=== PATIENT | male | born 1955 | race Caucasian/White ===

== ENCOUNTER 2018-04-03 06:33 | Inpatient (IN) ==
[2018-04-03] MEDS ORDERED: CeFAZolin Syr 2,000MG/20 ML 2,000 MG/20 ML SYRINGE IVPB ONE (06:51)
[2018-04-03] MEDS ORDERED: Albuterol 2.5 MG/3 ML NEBULIZER IH ONE ×2 (06:51→08:27)
[2018-04-03] MEDS ORDERED: Ringers Solution, Lactated 1,000 ML IVC SCH ×2 (07:00→12:21)
[2018-04-03] MEDS ORDERED: Albuterol 2.5 MG/3 ML NEBULIZER ONE (07:09)
[2018-04-03] MEDS ORDERED: Ethanol\\Acetic Acid\\Na Ace\\Ben 1,000 ML IRRIG.SOLN IR ONE (07:15)
[2018-04-03] MEDS ORDERED: *HR* FentaNYL (PF) 100 MCG/2 ML VIAL ONE (07:23)
[2018-04-03] MEDS ORDERED: Ondansetron 4 MG/2 ML VIAL ONE (07:23)
[2018-04-03] MEDS ORDERED: Lidocaine -MPF 4% 5 ML AMPUL ONE (07:23)
[2018-04-03] MEDS ORDERED: Dexamethasone 4 MG/ML VIAL ONE ×2 (07:23→07:29)
[2018-04-03] MEDS ORDERED: Ketorolac 30 MG/ML VIAL ONE (07:23)
[2018-04-03] MEDS ORDERED: *HR* Midazolam HCl 2 MG/2 ML VIAL ONE (07:23)
[2018-04-03] MEDS ORDERED: *HR* Succinylcholine 200 MG/10 ML VIAL IVP ONE (07:23)
[2018-04-03] MEDS ORDERED: Lidocaine -MPF 2% 2 ML VIAL ONE (07:23)
[2018-04-03] MEDS ORDERED: *HR* Propofol 200 MG/20 ML VIAL IVP ONE (07:23)
[2018-04-03] MEDS ORDERED: Famotidine 20 MG/2 ML VIAL IVP ONE (07:55)
[2018-04-03] MEDS ORDERED: Acetaminophen IV 1,000 MG/100 ML INFUS..BTL IVPB ONE (07:55)
[2018-04-03] MEDS ORDERED: Pregabalin 75 MG CAPSULE PO ONE (07:55)
--- NOTE | 2018-04-03 07:58 | Anesthesia Evaluation PreOp ---
Date of Encounter: 04/03/18 Time of Encounter: 08:00 - Past History Planned Operation: Rt TSR Cardiac History: HTN, Hyperlipidemia Pulmonary History: Smoker, DEIRDRE Dx (non compliant with CPAP) HUMAN RESOURCES TEMP History: Denies Any Significant HX Other Medical History: Diabetes Type II, Thyroid, Other (Obese) Anesthesia History: No Prior Anesthetic Complications Alcohol Use: rarely Drug use: none Medications and Allergies Amlodipine Besylate 10 mg PO DAILY 04/03/18 [History] Atorvastatin Calcium [Lipitor] 20 mg PO DAILY 04/03/18 [History] Dapagliflozin/Metformin HCl [Xigduo Xr 5 mg-1,000 mg Tablet] 1 tab PO DAILY 06/13 [History] Levothyroxine Sodium [Synthroid] 137 mcg PO DAILY 04/03/18 [History] Meloxicam [Meloxicam] 15 mg PO BID 04/03/18 [History] Metoprolol [Lopressor] 50 mg PO BID 04/03/18 [History] OxyCODONE Immed Rel [Roxicodone 5 MG] 5 mg PO Q6HR PRN 7 Days #28 tablet [Rx] hydroCHLOROthiazide [Hydrochlorothiazide] 25 mg PO DAILY 04/03/18 [History] 3 Allergy/AdvReac Type Severity Reaction Status Date / Time No Known Allergies Allergy Verified 04/03/18 07:19 - Meds/Allergy Pre-op Review Medications Reviewed: Yes Allergies Reviewed: Yes Beta Blockers on Current Med List: Yes (Metoprolol today 0530) Anesthesia Results - Labs Laboratory Tests 03/28/18 03/28/18 08:11 08:11 Hgb 17.8 H Hct 50.6 H Plt Count 267 Sodium 135 L Potassium 4.4 BUN 19 Creatinine 0.84 - Imaging EKG: report reviewed (SR) Anesthesia Exam O2 Sat Height 1.78 m Height 1.78 m Height 1.78 m Weight 120.202 kg Weight 120.202 kg Weight 120.202 kg O2 Sat by Pulse Oximetry 97 O2 Sat by Pulse Oximetry 97 Vital Signs Temp Pulse Resp BP Pulse Ox 97.6 F 65 18 130/80 97 04/03/18 06:56 04/03/18 06:56 04/03/18 06:56 04/03/18 06:56 04/03/18 06:56 Height: 5'10 Weight: 265 lbs NPO (# of Hours): MN Pain Scale: 0 - HEENT Pupil (Motor): Pupils equal, EOMI Mallampati: III Teeth: Missing Oral Opening: Less than or equal to 3 - HUMAN RESOURCES TEMP LOC: Oriented HUMAN RESOURCES TEMP Motor: Normal RUE, Normal LUE, Normal RLE, Normal LLE, Normal Face HUMAN RESOURCES TEMP Sensory: Normal: RUE, LUE, RLE, LLE, Face - Cardiac Rhythm: Regular Murmur: None JVD: No Carotid Bruit: No - Pulmonary Breath Sounds: bilateral Clear Respiratory Effort: Symmetrical Anesthesia Assess/Plan ASA Score: 3 (HTN DM Hypothyroid) Modified Zev Scale for Level of Consciousness: Cooperative, oriented, and tranquil Anesthetic Plan: General, Regional Monitoring Plan: Standard Monitors Recovery Plan: PACU (Discussed GA and RA, agrees to proceed)
[2018-04-03] MEDS ORDERED: CeFAZolin Syr 3,000MG/30 ML 3,000 MG/30 ML SYRINGE IVPB ONE (08:00)
--- NOTE | 2018-04-03 08:00 | History & Physical Report ---
Date of Encounter: 04/03/18 Time of Encounter: 07:59 24 Hour HP Update - Instructions Instructions: If the History and Physical is less than 30 days old and was completed prior to A.M. admission and or procedure and has NOT been updated on calendar day of procedure please complete this update prior to performing procedure. - Update Patient reports changes in Medical Condition: No Changes in examination, assessment, or condition: No Changes in Medication: No Preop tests/diagnostics Reviewed: Yes Surgery Remains Indicated: Yes Consent for Planned Operative Procedure(s) Verified: Yes - Pre-Operative Checklist Preoperative Checklist Indicated: No Prophylactic Antibiotic Ordered: Yes Is VTE Prophylaxis Indicated?: Yes
[2018-04-03] MEDS ORDERED: Acetaminophen IV 1,000 MG/100 ML INFUS..BTL ONE (08:01)
[2018-04-03] MEDS ORDERED: Pregabalin 75 MG CAPSULE ONE (08:01)
[2018-04-03] MEDS ORDERED: Famotidine 20 MG/2 ML VIAL ONE (08:02)
[2018-04-03] MEDS ORDERED: Bupivacaine/Clonidine Syringe 1 EACH SYRINGE ONE (08:11)
[2018-04-03] MEDS ORDERED: ROPIVACAINE HCL/PF 0.5% 30 ML VIAL ONE (08:11)
[2018-04-03] MEDS ORDERED: Tetracaine/PF 20 MG/2 ML AMPUL ONE (08:13)
[2018-04-03] MEDS ORDERED: *HR* Labetalol 20 MG/4 ML SYRINGE IVP PRN (08:27)
[2018-04-03] MEDS ORDERED: *HR* HYDROmorphone (PF) 1 MG/ML SYRINGE IVP PRN (08:27)
[2018-04-03] MEDS ORDERED: *HR* Promethazine 25 MG/ML VIAL IVP PRN (08:27)
[2018-04-03] MEDS ORDERED: *HR* Meperidine 25 MG/ML SYRINGE IVP PRN (08:27)
--- NOTE | 2018-04-03 08:27 | Anesthesia Procedures ---
Date of Encounter: 04/03/18 Time of Encounter: 08:15 Procedures: Anesthesia - Nerve Block Procedure Date: 04/03/18 Time: 08:15 Allergies/Adv Reactions: NKDa Pre-op Diagnosis: right shoulder arthritis/cyst Surgical Procedure: right shoulder arthroplasty Checklist: Correct Patient Identifier, Correct procedure, History checked Correct side: Right Blood Thinner: No Monitor Applied: EKG, BP, Pulse Oximetry Supplemental Oxygen via Nasal Cannula (L/min): 2 Sedation: Versed (mg): 2 Sedation: Fentanyl (mcg): 100 Indication: Post Op Analgesia Pre-op Neuro Deficits: No Block Type: Supraclavicular Catheter placed: No Sterile Technique: Yes Ultrasound used: Yes Anatomy identified: Yes Visual spread of Local: Yes Neuro Stimulation: Yes Nerve Stimulator Range: 0.2 - 0.4 mA Blood on Needle Aspiration: No Smooth Injection of Local: Yes Pain with Injection of Local: No Prep: Chlorhexadine Needle: 22 x 50 mm Stimuplex Local: 0.25% Bupivicaine w/Clonidine 20 mcg/cc, Ropivacaine (0.5% ropi +8mg decadron +1% tetracaine ) Volume (cc): 30 Number of Attempts: 1 Complications: None/effective block Vitals: Vital Signs - Last 8 Hours Temp Pulse Resp BP Pulse Ox 04/03/18 08:12 68 137/97 93 04/03/18 06:56 97.6 F 65 18 130/80 97 Intake and Output 04/02/18 04/03/18 04/03/18 23:59 07:59 15:59 Other: Weight 120.202 kg Blood Glucose* 166 Patient Weight 04/03/18 23:59 Weight 120.202 kg Comments: per dr. klein request
--- NOTE | 2018-04-03 09:32 | Orthopedic Operative Note ---
Date of procedure: 04/03/18 Pre-op diagnosis: Right shoulder cuff tear arthropathy right shoulder cyst Post-op diagnosis: same Procedure: Procedure: Total Shoulder Replacment Reverse, right, cyst evacuation Estimated blood loss: 100 cc Hardware: Metal and polyethylene replacement: Arthrex large glenoid baseplate, 2 4.5 screws. 1 6.5 screw, 42+4 glenosphere, 12 humeral stem, poly insert 3 and 6 metal Exam Under anesthesia: Full motion no instability 3 x 3 cm cyst over the acromioclavicular joint. Procedural Notes: Grade 4 arthritic changes humeral head glenoid socket irreparable tear supraspinatus tendon, synovial type cyst acromioclavicular joint. Operative procedure: The patient was brought to the operating room and placed on the operating room table. After general anesthesia was administered the operative shoulder was examined. Findings were noted. The patient was placed in the modified beachchair position. All pressure points were padded appropriately. And the head was stabilized in the neutral position. The operative extremity was prepped and draped in the sterile surgical fashion. The patient received IV antibiotics prior to skin incision. A standard deltopectoral approach was made to the operative shoulder. Incision was made to the skin and subcutaneous tissue,hemo stasis was obtained with Bovie cautery. Using careful blunt dissection the cephalic vein was identified and mobilized medially. The deltopectoral interval was developed and the clavipectoral fascia was incised. Using careful blunt dissection the cyst was identified and was evacuated with suction The subscap was released off the lesser tuberosity and tagged with #2 FiberWire suture subscap was irreparable.. The humerus was dislocated patient noted to have irreparable tear supraspinatus tendon, and the humeral cut was made along the anatomic neck. Patient noted to have grade 4 arthritic changes humeral head. Anterior and posterior Bankart retractors were placed to expose the glenoid. Patient noted to have grade 4 arthritic changes glenoid socket. The glenoid guide was seated and the centering hole was made. It was reamed with the appropriate reamer. The large baseplate was seated and secured with (2) 4.5 screws and one 6.5 screw. The baseplate was irrigated and dried and the 42+4 Glenosphere was seated and secured with the Pete taper. The Pete taper was tested and found to be secure the humerus was redislocated and prepared with the diaphyseal reamers, followed by a broaching process up to the appropriate size 12 in the patient's anatomic version. The metaphyseal reamer was then utilized. Trial reduction found the shoulder to be relocatable. Trial components were removed and the 12 stem was impacted in place in the patient's anatomic version. Trial reduction found the shoulder to be relocatable and stable with the appropriate 6 metal and 3 Kalpana. Trial component was removed and the real implants were seated and secured the shoulder was reduced. The shoulder had excellent motion and excellent stability and no evidence of dislocation. The deep tissue was irrigated with pulse irrigation. The PA close the shoulder. The deltopectoral interval was closed with a running #1 PDS suture, subcutaneous tissue was irrigated and closed with 0 PDS suture, the skin was closed with Dermabond. The patient was placed in a sterile dressing, abduction brace and extubated. The patient was then transferred to the recovery room in stable condition. Anesthesia: GETA Surgeon: Rex Brooks Was there an accounts payable assistant present: Yes Land Economist: Leyda Gary Estimated blood loss (cc): 100 Condition: stable Disposition: PACU
[2018-04-03 10:35] LABS: Hemoglobin 17.1 g/dL (12.9-16.9)
--- NOTE | 2018-04-03 11:18 | Anesthesia Evaluation Post Op ---
Date of Encounter: 04/03/18 Time of Encounter: 11:25 - Vital Signs Vital Signs: Vital Signs/O2 Sat/Glucose, Most Current Temp Pulse Resp BP Pulse Ox 04/03/18 11:00 71 14 123/74 94 04/03/18 10:49 97.9 F 74 13 128/72 94 04/03/18 10:39 76 14 129/93 92 04/03/18 10:29 74 13 135/79 92 04/03/18 10:19 97.3 F L 72 15 124/77 92 04/03/18 10:09 70 15 137/75 92 04/03/18 09:59 71 16 158/82 91 04/03/18 09:49 97.6 F 74 16 140/86 95 04/03/18 08:12 68 137/97 93 - Lungs Lungs: Clear Ascult./Percussion - Airway Airway: Non-obstructed - Cardiovascular Regular Rate - Mental Status Mental Status: Alert & Oriented, Answers Appropriately - Pain Pain Scale: 0 - Nausea Vomiting Nausea Vomiting: Not Present - Hydration Hydration: Ice chips - Discharge PostOp Status: Transfer Patient to floor
[2018-04-03] MEDS ORDERED: METFORMIN HCL PO SCH (12:21)
[2018-04-03] MEDS ORDERED: traMADol 50 MG TABLET PO PRN (12:21)
[2018-04-03] MEDS ORDERED: Naloxone 0.4 MG/ML INJ IVP PRN (12:21)
[2018-04-03] MEDS ORDERED: amLODIPine 5 MG TABLET PO SCH (12:21)
[2018-04-03] MEDS ORDERED: hydroCHLOROthiazide 25 MG TABLET PO SCH (12:21)
[2018-04-03] MEDS ORDERED: DAPAGLIFLOZIN PO SCH (12:21)
[2018-04-03] MEDS ORDERED: Ondansetron 4 MG/2 ML VIAL IVP PRN (12:21)
[2018-04-03] MEDS ORDERED: Temazepam 15 MG CAPSULE PO PRN (12:21)
[2018-04-03] MEDS ORDERED: *HR* OxyCODONE Immed Rel 5 MG TABLET PO PRN (12:21)
[2018-04-03] MEDS ORDERED: MOM Conc 10 ML UD.LIQ PO PRN (12:21)
[2018-04-03] MEDS ORDERED: *HR* OxyCODONE/APAP 5/325 TABLET PO PRN (12:21)
[2018-04-03] MEDS ORDERED: Sennosides 8.6 MG TABLET PO PRN (12:21)
[2018-04-03 13:11] VITALS: BP 113/65
[2018-04-03] MEDS ORDERED: CeFAZolin Syr 3,000MG/30 ML 3,000 MG/30 ML SYRINGE IVPB SCH (16:00)
[2018-04-03] MEDS ORDERED: *HR* Enoxaparin 30 MG/0.3 ML SYRINGE SQ SCH ×2 (18:00)
--- NOTE | 2018-04-03 19:08 | Discharge Summary ---
Orders not resulted at time of discharge: Pending orders 04/03/18 08:08 US anesthesia pain block [US] Routine 04/03/18 09:30 Surgical Pathology [PTH] Routine Date of Encounter: 04/03/18 Time of Encounter: 19:06 - Discharge Diagnosis (1) Status post reverse total arthroplasty of right shoulder Priority: Primary Status: Acute Comments: REMOVE BULKY DRESSING IN 24 HOURS. Opsite dressing, leave intact until first post-operative visit. If dressing becomes >50% saturated, contact office, remove dressing and place appropriate dressing in its place. Do not allow for dressing to get wet .PT: Precautions x 6 weeks Apply cold therapy wrap 3-6x/day for 20 minutes at a time. Encourage ambulation throughout the day and incentive spirometer 10x/hour. Elevate affected extremity above heart as tolerated. Brace: Continue in Arm slingshot and physical therapy. Follow Total Shoulder precautions x 6 weeks. No lifting/pulling or pushing. (2) Rotator cuff arthropathy of right shoulder Priority: Primary Status: Acute (3) HTN (hypertension) Priority: Secondary Status: Acute Qualifiers: Hypertension type: essential hypertension Qualified Code(s): I10 - Essential (primary) hypertension (4) Tobacco use Priority: Secondary Status: Chronic (5) COPD (chronic obstructive pulmonary disease) Priority: Secondary Status: Chronic Qualifiers: COPD type: unspecified COPD Qualified Code(s): J44.9 - Chronic obstructive pulmonary disease, unspecified (6) DEIRDRE (obstructive sleep apnea) Priority: Secondary Status: Chronic (7) DMII (diabetes mellitus, type 2) Priority: Secondary Status: Chronic Qualifiers: Diabetes mellitus termite exterminator insulin use: unspecified longterm insulin use status Diabetes mellitus complication status: with unspecified complications Qualified Code(s): E11.8 - Type 2 diabetes mellitus with unspecified complications (8) Obesity Priority: Secondary Status: Chronic Qualifiers: Obesity type: due to excess calories Obesity classification: unspecified obesity classification Serious obesity comorbidity presence: without serious comorbidity Qualified Code(s): E66.09 - Other obesity due to excess calories (9) History of AAA (abdominal aortic aneurysm) repair Priority: Secondary Status: Acute - Hospital Course Hospital course: Mr. Parker is a 62 year old male, S/P Right TSR-r with cyst debridement. Patient seen and doing well. Pain controlled. Post-operative restrictions discussed. Plan to f/up in 1 week. Patient stable for discharge - Time Spent with Patient Total time spent providing and/or coordinating discharge services: Less than 30 minutes - Discharge Medications Home Medications: Amlodipine Besylate 10 mg PO DAILY 04/03/18 [History] Atorvastatin Calcium [Lipitor] 20 mg PO DAILY 04/03/18 [History] Dapagliflozin/Metformin HCl [Xigduo Xr 5 mg-1,000 mg Tablet] 1 tab PO DAILY 06/13 [History] Levothyroxine Sodium [Synthroid] 137 mcg PO DAILY 04/03/18 [History] Meloxicam [Meloxicam] 15 mg PO BID 04/03/18 [History] Metoprolol [Lopressor] 50 mg PO BID 04/03/18 [History] OxyCODONE Immed Rel [Roxicodone 5 MG] 5 mg PO Q6HR PRN 7 Days #28 tablet [Rx] hydroCHLOROthiazide [Hydrochlorothiazide] 25 mg PO DAILY 04/03/18 [History] Allergies/Adverse Reactions: 3 Allergy/AdvReac Type Severity Reaction Status Date / Time No Known Allergies Allergy Verified 04/03/18 07:19 Date of admission: 04/03/18 12:13 Primary care physician: Sirisha Barr CNP Consults: 04/03/18 12:21 Consult to Physical Therapy [CONS] Routine Comment: post shoulder surgery Reason for Consult: post shoulder surgery Does patient have active BEDREST order?: No Is patient medically & hemodynamically stable?: Yes RT Post Op Consult [CONS] Routine Discharging clinician: Rex Brooks Anticipated date of discharge: 04/03/18 - VTE Documentation of Mechanical Device: Venous foot pump, device Labs on day of discharge: Labs from last 24 hours 04/03/18 04/03/18 09:55 06:54 Hgb 17.1 H Hct 51.0 H POC Glucose 166 H - Impressions ITS Impressions Shoulder X-Ray 04/03/18 07:32 IMPRESSION: Satisfactory appearance status post right shoulder arthroplasty D/ / Andrea Westbrook MD / Andrea Westbrook MD Interpreting Provider: Andrea Westbrook MD - Patient Status Disposition: Home, Self-Care Condition: Good Functional capacity at discharge: independent ambulation Overall status at discharge: patient is back to baseline - Discharge Instructions Instructions: Joint Replacement Surgery (DC) Follow Up With: Sirisha Barr CNP [Primary Care Provider] - 04/25/18 9:00 am
== END 2018-04-03 16:47 | disposition home or self-care (01) | DRG 483 ==
LOC: SAMDAY 06:33 → 1NENUPED 12:13
PROVIDERS: ADMIT Orthopaedic Surgery; ATTEND Orthopaedic Surgery

== ENCOUNTER 2019-08-31 11:03 | Inpatient (IN) ==
[2019-08-31] MEDS ORDERED: CeFAZolin Syr 2,000MG/20 ML 2,000 MG/20 ML SYRINGE IVPB ONE (11:21)
[2019-08-31] MEDS ORDERED: Albuterol 2.5 MG/3 ML NEBULIZER IH PRN (11:27)
[2019-08-31] MEDS ORDERED: Ringers Solution, Lactated 1,000 ML IVC SCH ×2 (11:30→16:42)
[2019-08-31] MEDS ORDERED: *HR* OxyCODONE Immed Rel 5 MG TABLET PO PRN ×2 (12:11→16:42)
[2019-08-31] MEDS ORDERED: *HR* HYDROmorphone 2 MG/ML SYRINGE IVP PRN (12:11)
[2019-08-31] MEDS ORDERED: Acetaminophen IV 1,000 MG/100 ML INFUS..BTL IVPB ONE (12:11)
[2019-08-31] MEDS ORDERED: Ondansetron 4 MG/2 ML VIAL IVP ONE (12:11)
[2019-08-31] MEDS ORDERED: *HR* Labetalol 20 MG/4 ML SYRINGE IVP PRN (12:11)
[2019-08-31] MEDS ORDERED: Gabapentin 300 MG CAPSULE PO ONE (12:12)
[2019-08-31] MEDS ORDERED: ROPIVACAINE/PF/NS 0.25% 1 EACH SYRINGE INTRAART ONE (12:25)
[2019-08-31] MEDS ORDERED: Ropivacaine/PF 0.5% 30 ML VIAL ONE (12:25)
[2019-08-31] MEDS ORDERED: *HR* Propofol 200 MG/20 ML VIAL IVP ONE (12:38)
[2019-08-31] MEDS ORDERED: *HR* Midazolam HCl 2 MG/2 ML VIAL ONE (12:38)
[2019-08-31] MEDS ORDERED: *HR* Rocuronium Bromide 50 MG/5 ML VIAL ONE (12:38)
[2019-08-31] MEDS ORDERED: *HR* Succinylcholine 200 MG/10 ML VIAL IVP ONE (12:38)
[2019-08-31] MEDS ORDERED: *HR* FentaNYL (PF) 100 MCG/2 ML VIAL ONE (12:38)
[2019-08-31] MEDS ORDERED: Ethanol\\Acetic Acid\\Na Ace\\Ben 1,000 ML IRRIG.SOLN IR ONE (13:24)
[2019-08-31] MEDS ORDERED: Lidocaine HCL 4 ML Topical Solution (Laryng-O-Jet Kit Sterile Pak) TP ONE (13:29)
[2019-08-31] MEDS ORDERED: EPHEDrine 50 MG/ML VIAL ONE (14:13)
[2019-08-31] MEDS ORDERED: Dexamethasone 4 MG/ML VIAL ONE (14:29)
[2019-08-31] MEDS ORDERED: Ondansetron 4 MG/2 ML VIAL ONE (14:29)
[2019-08-31 15:50] LABS: Hematocrit 52.7 % (37.5-50.1); Hemoglobin 18.1 g/dL (12.9-16.9)
[2019-08-31] MEDS ORDERED: CeFAZolin Syr 3,000MG/30 ML 3,000 MG/30 ML SYRINGE IVPB ONE (16:12)
[2019-08-31] MEDS ORDERED: Naloxone 0.4 MG/ML INJ IVP PRN (16:42)
[2019-08-31] MEDS ORDERED: *HR* OxyCODONE/APAP 5/325 TABLET PO PRN (16:42)
[2019-08-31] MEDS ORDERED: *HR* Dextrose 50 % in Water (Syg) 50 ML SYRINGE IVP PRN (16:42)
[2019-08-31] MEDS ORDERED: Gabapentin 100 MG CAPSULE PO SCH (16:42)
[2019-08-31] MEDS ORDERED: Insulin LISPRO 300 UNITS/3 ML VIAL SQ SCH ×2 (16:42→21:00)
[2019-08-31] MEDS ORDERED: Temazepam 15 MG CAPSULE PO PRN (16:42)
[2019-08-31] MEDS ORDERED: Famotidine 20 MG/2 ML VIAL IVP ONE (16:42)
[2019-08-31] MEDS ORDERED: D5% in Water 1,000 ML IVC PRN (16:42)
[2019-08-31] MEDS ORDERED: Dextrose Gel 15 GM/37.5 ML TUBE PO PRN ×2 (16:42)
[2019-08-31] MEDS ORDERED: Sennosides 8.6 MG TABLET PO PRN (16:42)
[2019-08-31] MEDS ORDERED: Ondansetron 4 MG/2 ML VIAL IVP PRN (16:42)
[2019-08-31] MEDS ORDERED: MOM Conc 10 ML UD.LIQ PO PRN (16:42)
[2019-08-31] MEDS ORDERED: *HR* Enoxaparin 30 MG/0.3 ML SYRINGE SQ SCH ×2 (18:00)
[2019-08-31] MEDS ORDERED: ceFAZolin 3,000 MG in 0.9 % Sodium Chloride 100 ML IVPB SCH (19:00)
[2019-08-31 19:11] VITALS: BP 151/76
[2019-09-01] MEDS ORDERED: hydroCHLOROthiazide 25 MG TABLET PO SCH (09:00)
[2019-09-01] MEDS ORDERED: amLODIPine 5 MG TABLET PO SCH (09:00)
[2019-09-01] MEDS ORDERED: *HR* Glimepiride 2 MG TABLET PO SCH (09:00)
== END 2019-08-31 20:15 | disposition home or self-care (01) | DRG 322 ==
LOC: SAMDAY 11:03 → 3NENU 16:41
PROVIDERS: ADMIT Orthopaedic Surgery; ATTEND Orthopaedic Surgery

== ENCOUNTER 2020-05-30 06:15 | Inpatient (IN) ==
[~2020-05-30 06:15] MED LIST: Vancomycin 1,000 MG, Sodium Chloride IRRigation 1,000 ML IR ONE
[2020-05-30] MEDS ORDERED: *HR* Metoprolol 5 MG/5 ML VIAL IVP PRN (06:59)
[2020-05-30] MEDS ORDERED: Acetaminophen IV 1,000 MG/100 ML INFUS..BTL IVPB ONE (06:59)
[2020-05-30] MEDS ORDERED: Ondansetron 4 MG/2 ML VIAL IVP ONE (06:59)
[2020-05-30] MEDS ORDERED: *HR* Promethazine 25 MG/ML VIAL IVP PRN (06:59)
[2020-05-30] MEDS ORDERED: *HR* OxyCODONE Immed Rel 5 MG TABLET PO PRN (06:59)
[2020-05-30] MEDS ORDERED: *HR* Propofol 200 MG/20 ML VIAL IVP ONE (07:08)
[2020-05-30] MEDS ORDERED: *HR* FentaNYL (PF) 100 MCG/2 ML VIAL ONE (07:08)
[2020-05-30] MEDS ORDERED: Lidocaine HCL 4 ML Topical Solution (Laryng-O-Jet Kit Sterile Pak) TP ONE (07:09)
[2020-05-30] MEDS ORDERED: Lidocaine -MPF 2% 2 ML VIAL ONE (07:09)
[2020-05-30] MEDS ORDERED: *HR* Rocuronium Bromide 50 MG/5 ML VIAL ONE (07:09)
[2020-05-30] MEDS ORDERED: *HR* Succinylcholine 200 MG/10 ML VIAL IVP ONE (07:09)
[2020-05-30] MEDS ORDERED: Dexamethasone 4 MG/ML VIAL ONE (07:09)
[2020-05-30] MEDS ORDERED: Heparin 1,000 UNITS/500 mL 500 ML ONE (07:10)
[2020-05-30] MEDS ORDERED: EPHEDrine 50 MG/ML VIAL ONE ×2 (07:13→10:29)
[2020-05-30] MEDS ORDERED: NiCARdipine 2.5 MG/10 ML Syringe IVPB ONE (07:19)
[2020-05-30] MEDS ORDERED: *HR* Vasopressin 20 UNIT/ML VIAL ONE (07:19)
[2020-05-30] MEDS ORDERED: Vancomycin 2,000 MG/520 ML IV.SOLN IVPB ONE ×2 (07:23→20:00)
[2020-05-30] MEDS ORDERED: Ringers Solution, Lactated 1,000 ML IVC SCH (07:30)
[2020-05-30] MEDS ORDERED: Vancomycin 1,000 MG VIAL ONE (07:42)
[2020-05-30] MEDS ORDERED: *HR* HYDROMORPHONE 2 MG/ML VIAL ONE (08:46)
[2020-05-30] MEDS ORDERED: Protamine Sulfate 50 MG/5 ML VIAL IVP ONE (10:36)
[2020-05-30] MEDS ORDERED: Albuterol 2.5 MG/3 ML NEBULIZER IH PRN (11:34)
[2020-05-30] MEDS ORDERED: Albuterol 2.5 MG/3 ML NEBULIZER ONE (11:35)
[2020-05-30] MEDS: *HR* HYDROmorphone PF 0.5 MG/0.5 ML SYRINGE IVP PRN ×2 (11:41→11:51)
[2020-05-30] MEDS ORDERED: Naloxone 0.4 MG/ML INJ IVP PRN (12:52)
[2020-05-30] MEDS ORDERED: 0.9 % Sodium Chloride 1,000 ML IVC SCH (12:52)
[2020-05-30] MEDS ORDERED: *HR* HYDROcodone/Acet 5/325 mg TABLET PO PRN (12:52)
[2020-05-30] MEDS ORDERED: Ondansetron 4 MG/2 ML VIAL IVP PRN (12:52)
[2020-05-30] MEDS ORDERED: *HR* Labetalol 20 MG/4 ML SYRINGE IVP PRN (12:52)
[2020-05-30] MEDS ORDERED: Acetaminophen 325 MG TABLET PO PRN (12:52)
[2020-05-30] MEDS: hydroCHLOROthiazide 25 MG TABLET PO SCH (14:09)
[2020-05-30] MEDS: *HR* Metoprolol 5 MG/5 ML VIAL IVP SCH ×2 (14:12→18:32)
[2020-05-30] MEDS: amLODIPine 5 MG TABLET PO SCH (14:13)
[2020-05-30] MEDS: Gabapentin 100 MG CAPSULE PO SCH ×3 (14:13→19:52)
[2020-05-30] MEDS: EMPAGLIFLOZIN PO SCH ×2 (14:14→19:53)
[2020-05-30] MEDS: METFORMIN HCL PO SCH ×2 (14:14→19:53)
[2020-05-30] MEDS: CeFAZolin 2 GM/120 ML BAG IVPB SCH (18:32)
[2020-05-30] MEDS: *HR* OxyCODONE Immed Rel 5 MG TABLET PO PRN (19:52)
[2020-05-30] MEDS ORDERED: Erythromycin OPTH Oint RIGHT EYE SCH (21:00)
[2020-05-31] MEDS: CeFAZolin 2 GM/120 ML BAG IVPB SCH (00:16)
[2020-05-31] MEDS: *HR* Metoprolol 5 MG/5 ML VIAL IVP SCH ×3 (00:17→12:35)
[2020-05-31 05:07] LABS: Basophils # 0.1 K/mcL (0.0-0.2); Basophils % 0.3 %; Eosinophils # 0.1 K/mcL (0.0-0.6); Eosinophils % 0.4 %; Hematocrit 39.7 % (37.5-50.1); Immature Granulocytes % 0.6 % (0-4); Lymphocytes # 2.4 K/mcL (0.6-4.6); Lymphocytes % 12.6 %; Mean Corpuscular HGB Conc 32.7 g/dL (31.6-35.5); Mean Corpuscular Hemoglobin 31.5 pg (28.0-33.3); Mean Corpuscular Volume 96.1 fL (83.0-100.0); Mean Platelet Volume 9.6 fL (9.4-12.4); Monocytes # 1.7 K/mcL (0.0-1.3); Monocytes % 8.8 %; Neutrophils # 14.9 K/mcL (1.6-8.9); Platelet Count 238 K/mcL (140-400); Red Blood Count 4.13 M/mcL (4.19-5.50); Red Cell Distribution Width 13.2 % (11.5-14.5); Segmented Neutrophils % 77.3 %; White Blood Count 19.2 K/mcL (4.3-11.1)
[2020-05-31 05:31] LABS: BUN/Creatinine Ratio 24 (6-26); Blood Urea Nitrogen 18 mg/dL (8-23); Calcium 8.4 mg/dL (8.6-10.3); Carbon Dioxide 26 mEq/L (23-29); Chloride 102 mEq/L (98-107); Glucose 160 mg/dL (70-105); Osmolality,Calculated 285 (280-300); Potassium 3.7 mEq/L (3.5-5.1); Sodium 135 mEq/L (136-145); eGFR For African Americans > 60 (> 60); eGFR For Non-African Americans > 60 (> 60)
[2020-05-31] MEDS ORDERED: *HR* Heparin 5,000 UNIT/ML VIAL SQ SCH ×2 (06:00)
[2020-05-31] MEDS: *HR* OxyCODONE Immed Rel 5 MG TABLET PO PRN (08:22)
[2020-05-31] MEDS: hydroCHLOROthiazide 25 MG TABLET PO SCH (08:22)
[2020-05-31] MEDS: Gabapentin 100 MG CAPSULE PO SCH (08:22)
[2020-05-31] MEDS: amLODIPine 5 MG TABLET PO SCH (08:22)
[2020-05-31] MEDS: EMPAGLIFLOZIN PO SCH (08:23)
[2020-05-31] MEDS: METFORMIN HCL PO SCH (08:23)
[2020-05-31 11:48] VITALS: BP 145/98
== END 2020-05-31 14:51 | disposition home or self-care (01) | DRG 253 ==
LOC: SAMDAY 06:15 → 2NNU 12:40
PROVIDERS: ADMIT Surgery; ATTEND Surgery

== ENCOUNTER 2022-03-23 00:32 | Inpatient (IN) ==
[2022-03-24] MEDS ORDERED: Naloxone 0.4 MG/ML INJ IVP PRN (03:02)
[2022-03-24] MEDS ORDERED: Ondansetron 4 MG/2 ML VIAL IVP PRN (03:02)
[2022-03-24] MEDS ORDERED: Acetaminophen 325 MG TABLET PO PRN (03:02)
[2022-03-24] MEDS ORDERED: *HR* Heparin 5,000 UNIT/ML VIAL IVP PRN ×2 (03:05)
[2022-03-24] MEDS: Heparin 25,000UNIT/250ML 1/2NS 25,000 UNIT/250 ML IV.SOLN IVC SCH ×2 (03:24→16:36)
[2022-03-24 04:33] LABS: Basophils # 0.1 K/mcL (0.0-0.2); Basophils % 0.7 %; Eosinophils # 0.1 K/mcL (0.0-0.6); Eosinophils % 1.7 %; Hematocrit 45.7 % (37.5-50.1); Hemoglobin 14.7 g/dL (12.9-16.9); INR 1.1; Immature Granulocytes % 0.7 % (0-4); Lymphocytes # 1.4 K/mcL (0.6-4.6); Mean Corpuscular HGB Conc 32.2 g/dL (31.6-35.5); Mean Corpuscular Hemoglobin 30.8 pg (28.0-33.3); Mean Corpuscular Volume 95.6 fL (83.0-100.0); Mean Platelet Volume 9.9 fL (9.4-12.4); Monocytes # 1.5 K/mcL (0.0-1.3); Monocytes % 18.5 %; Neutrophils # 4.8 K/mcL (1.6-8.9); Platelet Count 181 K/mcL (140-400); Prothrombin Time 12.1 Seconds (9.4-12.1); Red Blood Count 4.78 M/mcL (4.19-5.50); Red Cell Distribution Width 13.2 % (11.5-14.5); Segmented Neutrophils % 60.4 %
[2022-03-24] MEDS ORDERED: *HR* Dextrose 50 % in Water (Syg) 50 ML SYRINGE IVP PRN (04:39)
[2022-03-24] MEDS ORDERED: Dextrose Gel 15 GM/37.5 ML TUBE PO PRN ×2 (04:39)
[2022-03-24] MEDS ORDERED: D5% in Water 1,000 ML IVC PRN (04:39)
[2022-03-24] MEDS: *HR* HYDROmorphone (PF) 1 MG/ML SYRINGE IVP PRN ×5 (04:45→22:59)
[2022-03-24 05:01] LABS: Activated Partial Thrombo Time 131.5 Seconds (26.0-36.0)
[2022-03-24 05:26] LABS: BUN/Creatinine Ratio 20 (6-26); Blood Urea Nitrogen 16 mg/dL (8-23); Calcium 8.2 mg/dL (8.6-10.3); Carbon Dioxide 27 mEq/L (23-29); Chloride 104 mEq/L (98-107); Glucose 109 mg/dL (70-105); Magnesium 1.9 mg/dL (1.6-2.6); Osmolality,Calculated 288 (280-300); Potassium 3.3 mEq/L (3.5-5.1); Sodium 138 mEq/L (136-145); Troponin I < 0.03 ng/mL (< 0.04); eGFR For African Americans > 60 (> 60); eGFR For Non-African Americans > 60 (> 60)
[2022-03-24 05:33] LABS: Platelet Estimate Normal (Normal)
[2022-03-24 05:49] LABS: Creatine Kinase 960 Units/L (30-223)
[2022-03-24] MEDS: 0.9 % Sodium Chloride 1,000 ML IVC SCH ×2 (06:37→18:14)
[2022-03-24] MEDS: Gabapentin 300 MG CAPSULE PO SCH ×3 (09:13→19:51)
[2022-03-24] MEDS: Aspirin Enteric Coated 81 MG Tablet PO SCH (09:13)
[2022-03-24] MEDS ORDERED: NON-FORMULARY MEDICATION 1 EACH EACH (Gabapentin [Neurontin] 600 MG Tablet) PO SCH (15:00)
[2022-03-25] MEDS: Heparin 25,000UNIT/250ML 1/2NS 25,000 UNIT/250 ML IV.SOLN IVC SCH (03:48)
[2022-03-25] MEDS: 0.9 % Sodium Chloride 1,000 ML IVC SCH ×2 (03:48→14:27)
[2022-03-25 04:56] LABS: Hematocrit 47.7 % (37.5-50.1); Hemoglobin 15.2 g/dL (12.9-16.9); Mean Corpuscular HGB Conc 31.9 g/dL (31.6-35.5); Mean Corpuscular Hemoglobin 31.1 pg (28.0-33.3); Mean Corpuscular Volume 97.5 fL (83.0-100.0); Mean Platelet Volume 10.4 fL (9.4-12.4); Platelet Count 177 K/mcL (140-400); Red Blood Count 4.89 M/mcL (4.19-5.50); Red Cell Distribution Width 13.6 % (11.5-14.5); White Blood Count 7.6 K/mcL (4.3-11.1)
[2022-03-25 05:19] LABS: BUN/Creatinine Ratio 18 (6-26); Blood Urea Nitrogen 13 mg/dL (8-23); Calcium 8.3 mg/dL (8.6-10.3); Carbon Dioxide 27 mEq/L (23-29); Chloride 105 mEq/L (98-107); Glucose 208 mg/dL (70-105); Osmolality,Calculated 288 (280-300); Potassium 4.2 mEq/L (3.5-5.1); Sodium 136 mEq/L (136-145); eGFR For African Americans > 60 (> 60); eGFR For Non-African Americans > 60 (> 60)
[2022-03-25] MEDS: Aspirin Enteric Coated 81 MG Tablet PO SCH (08:04)
[2022-03-25] MEDS: Gabapentin 300 MG CAPSULE PO SCH ×2 (08:05→17:34)
[2022-03-25] MEDS ORDERED: Aspirin Enteric Coated 81 MG Tablet PO SCH (09:00)
[2022-03-25] MEDS ORDERED: hydroCHLOROthiazide 25 MG TABLET PO SCH (09:00)
[2022-03-25] MEDS ORDERED: amLODIPine 5 MG TABLET PO SCH (09:00)
[2022-03-25] MEDS ORDERED: *HR* OxyCODONE/APAP 5/325 TABLET PO ONE (12:41)
[2022-03-25] MEDS ORDERED: Vancomycin 1,000 MG, Sodium Chloride IRRigation 1,000 ML IR ONE (14:55)
[2022-03-25] MEDS ORDERED: *HR* Phenylephrine 10 MG/ML VIAL ONE (15:56)
[2022-03-25] MEDS ORDERED: Lidocaine HCL 4 ML Topical Solution (Laryng-O-Jet Kit Sterile Pak) TP ONE (15:56)
[2022-03-25] MEDS ORDERED: *HR* Succinylcholine 200 MG/10 ML VIAL IVP ONE (15:56)
[2022-03-25] MEDS ORDERED: Lidocaine -MPF 2% 5 ML VIAL ONE (15:56)
[2022-03-25] MEDS ORDERED: *HR* Propofol 200 MG/20 ML VIAL IVP ONE (15:58)
[2022-03-25] MEDS ORDERED: Bupivacaine-MPF 0.25% 10 ML VIAL ONE (16:00)
[2022-03-25] MEDS ORDERED: Heparin 1,000 UNITS/500 mL 500 ML ONE (16:00)
[2022-03-25] MEDS ORDERED: CeFAZolin Syr 3,000MG/30 ML 3,000 MG/30 ML SYRINGE IVPB ONE (17:00)
[2022-03-25] MEDS ORDERED: Vancomycin 1,750 MG/517.5 ML IV.SOLN IVPB ONE (17:00)
[2022-03-25] MEDS ORDERED: *HR* FentaNYL (PF) 100 MCG/2 ML VIAL ONE (17:03)
[2022-03-25] MEDS ORDERED: *HR* Rocuronium Bromide 50 MG/5 ML VIAL ONE (17:04)
[2022-03-25] MEDS ORDERED: Ondansetron 4 MG/2 ML VIAL ONE (17:05)
[2022-03-25] MEDS ORDERED: EPHEDrine 50 MG/ML VIAL ONE (17:06)
[2022-03-25] MEDS ORDERED: *HR* Remifentanil 1 MG VIAL IVP ONE (17:14)
[2022-03-25] MEDS ORDERED: *HR* Midazolam HCl 2 MG/2 ML VIAL ONE (17:39)
[2022-03-25] MEDS ORDERED: *HR* Heparin 5,000 UNIT/ML VIAL ONE (19:32)
[2022-03-25] MEDS ORDERED: Ipratropium/Albuterol Neb 3 ML IH PRN ×2 (19:54→22:36)
[2022-03-25] MEDS ORDERED: Insulin LISPRO 300 UNITS/3 ML VIAL SUBQ SCH (21:00)
[2022-03-25] MEDS ORDERED: *HR* HYDROmorphone (PF) 1 MG/ML SYRINGE IVP PRN (21:43)
[2022-03-25] MEDS ORDERED: Ondansetron 4 MG/2 ML VIAL IVP PRN ×2 (21:43→22:36)
[2022-03-25] MEDS ORDERED: Ketorolac 30 MG/ML VIAL IVP PRN (21:43)
[2022-03-25] MEDS ORDERED: *HR* Labetalol 20 MG/4 ML SYRINGE IVP PRN (21:43)
[2022-03-25] MEDS ORDERED: *HR* OxyCODONE Immed Rel 5 MG TABLET PO PRN ×2 (21:43→22:36)
[2022-03-25] MEDS ORDERED: Promethazine 6.25 MG in Water for inj. (sterile) 20 ML IVPB PRN (21:44)
[2022-03-25] MEDS ORDERED: 0.9 % Sodium Chloride 1,000 ML IVC SCH (22:36)
[2022-03-25] MEDS ORDERED: Acetaminophen 325 MG TABLET PO PRN (22:36)
[2022-03-25] MEDS ORDERED: D5% in Water 1,000 ML IVC PRN (22:36)
[2022-03-25] MEDS ORDERED: *HR* Dextrose 50 % in Water (Syg) 50 ML SYRINGE IVP PRN (22:36)
[2022-03-25] MEDS ORDERED: *HR* HYDROcodone/Acet 5/325 mg TABLET PO PRN (22:36)
[2022-03-25] MEDS ORDERED: Naloxone 0.4 MG/ML INJ IVP PRN (22:36)
[2022-03-25] MEDS ORDERED: Dextrose Gel 15 GM/37.5 ML TUBE PO PRN ×2 (22:36)
[2022-03-25] MEDS: ceFAZolin 2,000 MG in 0.9 % Sodium Chloride 100 ML IVPB SCH (23:41)
[2022-03-26] MEDS ORDERED: Vancomycin 1,750 MG/517.5 ML IV.SOLN IVPB ONE (04:00)
[2022-03-26 05:41] LABS: Hematocrit 46.6 % (37.5-50.1); Mean Corpuscular HGB Conc 32.2 g/dL (31.6-35.5); Mean Corpuscular Hemoglobin 31.1 pg (28.0-33.3); Mean Corpuscular Volume 96.5 fL (83.0-100.0); Mean Platelet Volume 9.8 fL (9.4-12.4); Platelet Count 159 K/mcL (140-400); Red Blood Count 4.83 M/mcL (4.19-5.50); Red Cell Distribution Width 13.5 % (11.5-14.5); White Blood Count 11.1 K/mcL (4.3-11.1)
[2022-03-26] MEDS ORDERED: *HR* Heparin 5,000 UNIT/ML VIAL SQ SCH (06:00)
[2022-03-26 06:55] LABS: BUN/Creatinine Ratio 16 (6-26); Blood Urea Nitrogen 10 mg/dL (8-23); Calcium 7.1 mg/dL (8.6-10.3); Carbon Dioxide 26 mEq/L (23-29); Chloride 107 mEq/L (98-107); Glucose 152 mg/dL (70-105); Magnesium 1.8 mg/dL (1.6-2.6); Osmolality,Calculated 290 (280-300); Potassium 3.9 mEq/L (3.5-5.1); Sodium 139 mEq/L (136-145); eGFR For African Americans > 60 (> 60); eGFR For Non-African Americans > 60 (> 60)
[2022-03-26 07:09] VITALS: TEMP 98.4
[2022-03-26] MEDS ORDERED: Insulin LISPRO 300 UNITS/3 ML VIAL SUBQ SCH ×2 (07:30→21:00)
[2022-03-26] MEDS: Insulin LISPRO 300 UNITS/3 ML VIAL SUBQ SCH ×2 (08:00→14:26)
[2022-03-26] MEDS ORDERED: amLODIPine 5 MG TABLET PO SCH (09:00)
[2022-03-26] MEDS ORDERED: hydroCHLOROthiazide 25 MG TABLET PO SCH (09:00)
[2022-03-26] MEDS ORDERED: Aspirin Enteric Coated 81 MG Tablet PO SCH (09:00)
[2022-03-26] MEDS: Gabapentin 300 MG CAPSULE PO SCH ×2 (09:28→14:26)
[2022-03-26] MEDS ORDERED: CeFAZolin 2,000 MG/120 ML BAG IVPB SCH (11:00)
[2022-03-26] MEDS: ceFAZolin 2,000 MG in 0.9 % Sodium Chloride 100 ML IVPB SCH (11:42)
[2022-03-26 17:28] VITALS: BP 137/63; O2SAT 96
[2022-03-26 17:31] VITALS: PULSE 66
== END 2022-03-26 15:00 | disposition home or self-care (01) | DRG 253 ==
LOC: 2NNU → SUATTDRO 03-24 02:22
PROVIDERS: ADMIT Student in an Organized Health Care Education/Training Program; ATTEND Student in an Organized Health Care Education/Training Program
PROC: VASFFBG (ICD-10-PCS; 2022-03-25 14:55)

== ENCOUNTER 2022-07-14 10:51 | Inpatient (IN) ==
[2022-07-14] MEDS ORDERED: Acetaminophen IV 1,000 MG/100 ML BAG IVPB PRN (11:12)
[2022-07-14] MEDS ORDERED: *HR* HYDROmorphone PF 0.5 MG/0.5 ML SYRINGE IVP PRN (11:12)
[2022-07-14] MEDS ORDERED: Albuterol 2.5 MG/3 ML NEBULIZER IH PRN (11:12)
[2022-07-14] MEDS ORDERED: Ondansetron 4 MG/2 ML VIAL IVP PRN ×3 (11:12→17:18)
[2022-07-14] MEDS ORDERED: Ringers Solution, Lactated 1,000 ML IVC SCH (11:15)
[2022-07-14] MEDS ORDERED: CeFAZolin Syr 3,000MG/30 ML 3,000 MG/30 ML SYRINGE IVPB ONE (11:15)
[2022-07-14] MEDS ORDERED: Ipratropium/Albuterol Neb 3 ML IH ONE (11:21)
[2022-07-14] MEDS ORDERED: EPINEPHrine 1 MG/ML VIAL ONE (11:23)
[2022-07-14] MEDS ORDERED: *HR* FentaNYL (PF) 100 MCG/2 ML VIAL ONE ×2 (11:30→13:37)
[2022-07-14] MEDS ORDERED: Nitroglycerin 0 MG/0 ML INFUS..BTL IVC ONE (11:32)
[2022-07-14] MEDS ORDERED: *HR* Phenylephrine 10 MG/ML VIAL ONE (11:32)
[2022-07-14] MEDS ORDERED: NiCARdipine 2.5 MG/10 ML Syringe IVPB ONE (11:32)
[2022-07-14] MEDS ORDERED: *HR* Vasopressin 20 UNIT/ML VIAL ONE (11:32)
[2022-07-14] MEDS ORDERED: Heparin 1,000 UNITS/500 mL 0 ML ONE (11:39)
[2022-07-14] MEDS ORDERED: Bupivacaine-MPF 0.25% 10 ML VIAL ONE (11:45)
[2022-07-14] MEDS ORDERED: Heparin 1,000 UNITS/500 mL 1,000 ML ONE (11:46)
[2022-07-14] MEDS ORDERED: Vancomycin 1,000 MG VIAL ONE (11:46)
[2022-07-14] MEDS ORDERED: Albumin Human 5% 0 GM/0 ML IV.SOLN ONE (11:58)
[2022-07-14] MEDS ORDERED: Vancomycin 1,750 MG/517.5 ML IV.SOLN IVPB ONE (12:00)
[2022-07-14] MEDS ORDERED: *HR* Propofol 200 MG/20 ML VIAL IVP ONE (12:23)
[2022-07-14] MEDS ORDERED: *HR* Succinylcholine 200 MG/10 ML VIAL IVP ONE (12:23)
[2022-07-14] MEDS ORDERED: Lidocaine -MPF 2% 2 ML VIAL ONE ×2 (12:23→12:42)
[2022-07-14] MEDS ORDERED: Ondansetron 4 MG/2 ML VIAL ONE (12:23)
[2022-07-14] MEDS ORDERED: *HR* Rocuronium Bromide 50 MG/5 ML VIAL ONE ×2 (12:23→14:02)
[2022-07-14] MEDS ORDERED: Lidocaine HCL 4 ML Topical Solution (Laryng-O-Jet Kit Sterile Pak) TP ONE (12:23)
[2022-07-14] MEDS ORDERED: Vancomycin 1,000 MG, Sodium Chloride IRRigation 1,000 ML IR ONE (12:30)
[2022-07-14] MEDS ORDERED: Acetaminophen 325 MG TABLET PO PRN ×2 (16:12→17:18)
[2022-07-14] MEDS ORDERED: Naloxone 0.4 MG/ML INJ IVP PRN ×2 (16:12→17:18)
[2022-07-14] MEDS ORDERED: *HR* OxyCODONE Immed Rel 5 MG TABLET PO PRN ×2 (16:12→17:18)
[2022-07-14] MEDS ORDERED: *HR* HYDROcodone/Acet 5/325 mg TABLET PO PRN (16:12)
[2022-07-14] MEDS ORDERED: D5% in Water 1,000 ML IVC PRN ×2 (16:15→17:18)
[2022-07-14] MEDS ORDERED: *HR* Labetalol 20 MG/4 ML SYRINGE IVP PRN ×2 (16:15→17:18)
[2022-07-14] MEDS ORDERED: *HR* Dextrose 50 % in Water (Syg) 50 ML SYRINGE IVP PRN ×2 (16:15→17:18)
[2022-07-14] MEDS ORDERED: Dextrose Gel 15 GM/37.5 ML TUBE PO PRN ×4 (16:15→17:18)
[2022-07-14] MEDS ORDERED: 0.9 % Sodium Chloride 1,000 ML IVC SCH ×2 (16:15→17:18)
[2022-07-14] MEDS ORDERED: Insulin LISPRO 300 UNITS/3 ML VIAL SUBQ SCH ×4 (16:30→21:00)
[2022-07-14] MEDS: *HR* Metoprolol 5 MG/5 ML VIAL IVP SCH ×2 (17:41→23:56)
[2022-07-14] MEDS: *HR* HYDROcodone/Acet 5/325 mg TABLET PO PRN ×2 (17:41→23:55)
[2022-07-14] MEDS ORDERED: *HR* Metoprolol 5 MG/5 ML VIAL IVP SCH (18:00)
[2022-07-14] MEDS: ceFAZolin 3,000 MG in 0.9 % Sodium Chloride 100 ML IVPB SCH (19:42)
[2022-07-14] MEDS ORDERED: Gabapentin 400 MG CAPSULE PO SCH (21:00)
[2022-07-14 23:04] VITALS: BP 160/74
[2022-07-15] MEDS ORDERED: Vancomycin 1,750 MG/517.5 ML IV.SOLN IVPB ONE
[2022-07-15] MEDS ORDERED: Vancomycin 1,750 MG in 0.9 % Sodium Chloride 250 ML IVPB ONE
[2022-07-15] MEDS: ceFAZolin 3,000 MG in 0.9 % Sodium Chloride 100 ML IVPB SCH (01:16)
[2022-07-15] MEDS ORDERED: *HR* Heparin 5,000 UNIT/ML VIAL SQ SCH ×2 (06:00)
[2022-07-15 06:18] LABS: BUN/Creatinine Ratio 20 (6-26); Blood Urea Nitrogen 14 mg/dL (8-23); Carbon Dioxide 28 mEq/L (23-29); Chloride 103 mEq/L (98-107); Glucose 121 mg/dL (70-105); Osmolality,Calculated 284 (280-300); Potassium 4.2 mEq/L (3.5-5.1); Sodium 136 mEq/L (136-145)
[2022-07-15] MEDS: *HR* Metoprolol 5 MG/5 ML VIAL IVP SCH (06:29)
[2022-07-15 06:36] LABS: Basophils # 0.1 K/mcL (0.0-0.2); Basophils % 0.4 %; Eosinophils % 0.2 %; Hematocrit 47.5 % (37.5-50.1); Hemoglobin 15.2 g/dL (12.9-16.9); Immature Granulocytes % 0.3 % (0-4); Lymphocytes % 11.7 %; Mean Corpuscular Hemoglobin 30.3 pg (28.0-33.3); Mean Corpuscular Volume 94.6 fL (83.0-100.0); Mean Platelet Volume 9.8 fL (9.4-12.4); Monocytes # 1.6 K/mcL (0.0-1.3); Monocytes % 9.5 %; Neutrophils # 13.4 K/mcL (1.6-8.9); Platelet Count 261 K/mcL (140-400); Red Blood Count 5.02 M/mcL (4.19-5.50); Red Cell Distribution Width 13.3 % (11.5-14.5); Segmented Neutrophils % 77.9 %; White Blood Count 17.2 K/mcL (4.3-11.1)
[2022-07-15 08:12] VITALS: PULSE 73; TEMP 97.8
[2022-07-15] MEDS ORDERED: hydroCHLOROthiazide 25 MG TABLET PO SCH (09:00)
[2022-07-15] MEDS ORDERED: amLODIPine 5 MG TABLET PO SCH (09:00)
[2022-07-15] MEDS ORDERED: Ezetimibe [Zetia] 10 MG Tablet PO SCH (09:00)
[2022-07-15] MEDS ORDERED: Aspirin Enteric Coated 81 MG Tablet PO SCH (09:00)
[2022-07-15 09:20] VITALS: O2SAT 92
[2022-07-15] MEDS ORDERED: Flu Vac QV 22-23 (6MOS UP)/PF 0.5 ML SYRINGE IM ONE (09:28)
[2022-07-15] MEDS ORDERED: CeFAZolin Syr 3,000MG/30 ML 3,000 MG/30 ML SYRINGE IVPB SCH (19:00)
== END 2022-07-15 11:27 | disposition home or self-care (01) | DRG 271 ==
LOC: SAMDAY 10:51 → 2NNU 17:17
PROVIDERS: ADMIT Surgery; ATTEND Surgery
PROC: VASFFBG (ICD-10-PCS; 2022-07-14 12:30)